=== PATIENT | female | born 1955 | race Caucasian/White ===

== ENCOUNTER 2018-05-30 12:34 | Day surgery (SDC) | payer OTHER ==
[~2018-05-30] VITALS: Ht 170.2 cm; Wt 93.5 kg
[~2018-05-30 12:34] MED LIST: AMLO10 PO; AMLO5 PO; ATOR10 PO; AZELASTINE137 MCG/0.; Allegra-D 12 H1 EACH PO; Anastrozole1 GM PO; CETI10 PO; CLEM1.34; DIPATR PO; EPIN.3I; EPIN.3I IM; EPIPEN 2-P0.3 MG/0.3 IJ; FAMO20 PO; FEXO60; FEXPSEER; IBUP800 PO; K-Dur10 MEQ PO; LETR2.5 PO; LORA1 PO; MELATONIN10 MG PO; NITR100CA PO; ONDA4 PO; ONDA8 PO; POTCHL20ER PO; PRED20 PO; PROM25 PO; PROM25S PR; Pepcid40 MG PO; RXHYDMOR2 PO; RXONDA4ODT MM; SERT100 PO; SERT50 PO; VITAMIN C500 MG PO; VITAMIN D34000 UNIT PO; Zofran8 MG PO
== END 2018-05-30 14:20 | disposition home or self-care (01) ==
LOC: ORSCSDS 12:34
PROVIDERS: Surgery
PROC: 0DBH8ZX Excision of Cecum, Via Natural or Artificial Opening Endoscopic, Diagnostic (ICD-10-PCS; principal; 2018-05-30 13:45)
DX: Z12.11 Encounter for screening for malignant neoplasm of colon (principal); D12.0 Benign neoplasm of cecum; Z86.010 Personal history of colon polyps; Z80.0 Family history of malignant neoplasm of digestive organs; I10 Essential (primary) hypertension; E78.5 Hyperlipidemia, unspecified; F32.9 Major depressive disorder, single episode, unspecified; Z79.899 Other long term (current) drug therapy
CPT/HCPCS: 88305; J7120

== ENCOUNTER → 2018-12-22 | Outpatient (CLI) | payer OTHER | END | disposition home or self-care (01) | LOC: LAB SHORT 13:09 → LAB EV 13:09 | DX: N12 Tubulo-interstitial nephritis, not specified as acute or chronic (principal) | CPT/HCPCS: 87086 ==

== ENCOUNTER 2020-09-06 11:03 | Emergency (ER) | payer OTHER ==
[~2020-09-06] VITALS: Ht 170.2 cm; Wt 93.9 kg
[2020-09-06] MEDS ORDERED: Cymbalta20 MG PO (11:19)
[2020-09-06] MEDS ORDERED: META800 PO (12:27)
== END 2020-09-06 12:45 | disposition home or self-care (01) ==
LOC: ER 11:03
DX: S29.011A Strain of muscle and tendon of front wall of thorax, initial encounter (principal); I10 Essential (primary) hypertension; Z79.899 Other long term (current) drug therapy; Z88.0 Allergy status to penicillin; Z88.1 Allergy status to other antibiotic agents; Z91.030 Bee allergy status; Z88.8 Allergy status to other drugs, medicaments and biological substances; X50.0XXA Overexertion from strenuous movement or load, initial encounter
CPT/HCPCS: 36415; 96374; 99283-25; J1885

== ENCOUNTER → 2021-12-08 | Outpatient (CLI) | payer OTHER ==
[~2021-12-08] MED LIST changes: +C COMPLEX1000 M1 PO; +Cymbalta20 MG PO; +LORA.5 PO; +META800 PO; +VITAMIN D325 MC3 PO; +ZINC15 PO
[2021-12-08 13:01] LABS: BASOPHILS ABSOLUTE AUTO 0.06 K/mm3 (0.00-0.23); BASOPHILS PERCENT AUTO 1 % (0-2); EOSINOPHILS ABSOLUTE AUTO 0.29 K/mm3 (0.00-0.68); EOSINOPHILS PERCENT AUTO 4 % (0-6); Hematocrit 45.6 % (33.0-51.0); Hemoglobin 15.2 g/dL (11.5-16.0); IMMATURE GRAN ABSOLUTE AUTO 0.04 K/mm3 (0.00-0.10); IMMATURE GRAN PERCENT AUTO 1 % (0-1); LYMPHOCYTES ABSOLUTE AUTO 2.33 K/mm3 (0.84-5.20); LYMPHOCYTES PERCENT AUTO 32 % (21-46); MONOCYTES ABSOLUTE AUTO 0.42 K/mm3 (0.16-1.47); MONOCYTES PERCENT AUTO 6 % (4-13); Mean Corpuscular HGB 28.6 pg (26.0-34.0); Mean Corpuscular HGB Conc 33.3 g/dL (31.5-36.5); Mean Corpuscular Volume 86 fL (80-100); Mean Platelet Volume 9.6 fL (9.1-12.4); NEUTROPHILS ABSOLUTE AUTO 4.12 K/mm3 (1.96-9.15); NEUTROPHILS PERCENT AUTO 57 % (41-73); Platelet Count 210 K/mm3 (150-400); RDW Coefficient Variation 14.4 % (11.7-14.2); RDW Standard Deviation 44.3 fL (35.1-46.3); Red Blood Cell Count 5.31 M/mm3 (3.80-5.20); White Blood Cell Count 7.26 K/mm3 (4.00-11.30)
[2021-12-08 13:25] LABS: Albumin, Blood 4.2 g/dL (3.4-5.0); Albumin/Globulin Ratio 1.1 (0.8-1.8); Bilirubin, Total 0.5 mg/dL (0.1-1.0); Bun/Creatinine Ratio 9.1 (12.0-20.0); Calcium, Blood 9.2 mg/dL (8.5-10.1); Creatinine, Blood 0.99 mg/dL (0.40-1.00); Globulin, Blood 3.9 g/dL (2.2-4.0); Magnesium, Blood 2.3 mg/dL (1.6-2.4); Phosphorus, Blood 2.6 mg/dL (2.5-4.9); Potassium, Blood 4.3 mmol/L (3.5-5.5); Thyroid Stimulating Hormone 1.592 uIU/mL (0.360-4.800); Total Protein, Blood 8.1 g/dL (6.4-8.2)
== END | disposition home or self-care (01) ==
LOC: LAB 12:56 → LAB SHORT 12:56
PROVIDERS: Family Medicine
DX: T50.905A Adverse effect of unspecified drugs, medicaments and biological substances, initial encounter (principal)
CPT/HCPCS: 80053; 82330; 83735; 83970; 84100; 84443; 85025

== ENCOUNTER → 2022-01-18 | Outpatient (CLI) | payer OTHER ==
[2022-01-18 15:18] LABS: Creatinine Urine 96.2 mg/dL (27.00-270.00)
[2022-01-18 15:19] LABS: Calcium, Urine 25.3 mg/dL (< 17.5); Calcium, Urine Calculation 354.2 mg/24hrs (42.0-353.0)
== END ==
LOC: LAB SHORT 12:02 → LAB 12:02
PROVIDERS: Internal Medicine Endocrinology, Diabetes & Metabolism
DX: E21.0 Primary hyperparathyroidism (principal)
CPT/HCPCS: 81050; 82340; 82570

== ENCOUNTER → 2022-02-25 | Outpatient (CLI) | payer OTHER | END | disposition home or self-care (01) | LOC: LAB SHORT 10:23 → LAB 10:23 | DX: L01.00 Impetigo, unspecified (principal) | CPT/HCPCS: 87070; 87077; 87147; 87186; 87205 ==

== ENCOUNTER → 2022-04-26 | Outpatient (CLI) | payer OTHER | END | disposition home or self-care (01) | LOC: LAB 14:30 → LAB SHORT 14:30 | DX: L08.0 Pyoderma (principal) | CPT/HCPCS: 87070; 87205 ==

== ENCOUNTER → 2022-10-27 | Outpatient (CLI) | payer OTHER | LOC: LAB SHORT 10:31 → LAB 10:31 | DX: R30.0 Dysuria (principal) | CPT/HCPCS: 87086 ==

== ENCOUNTER → 2023-05-08 | Outpatient (CLI) | payer MEDICARE, OTHER | LOC: LAB SHORT 11:55 → LAB 11:55 | DX: N39.0 Urinary tract infection, site not specified (principal) | CPT/HCPCS: 87077; 87086; 87186 ==

== ENCOUNTER 2023-06-11 08:16 | Emergency (ER) | payer MEDICARE, OTHER ==
[~2023-06-11] VITALS: Ht 170.2 cm; Wt 86.2 kg
[2023-06-11] MEDS ORDERED: ONDA4 PO (09:33)
[2023-06-11] MEDS ORDERED: DULO30 PO (09:33)
[2023-06-11] MEDS ORDERED: OMEP20ER PO (09:34)
[2023-06-11 10:06] LABS: BASOPHILS ABSOLUTE AUTO 0.02 K/mm3 (0.00-0.23); BASOPHILS PERCENT AUTO 0 % (0-2); EOSINOPHILS ABSOLUTE AUTO 0.02 K/mm3 (0.00-0.68); EOSINOPHILS PERCENT AUTO 0 % (0-6); Hematocrit 41.9 % (33.0-51.0); IMMATURE GRAN ABSOLUTE AUTO 0.02 K/mm3 (0.00-0.10); IMMATURE GRAN PERCENT AUTO 0 % (0-1); LYMPHOCYTES ABSOLUTE AUTO 0.99 K/mm3 (0.84-5.20); LYMPHOCYTES PERCENT AUTO 11 % (21-46); MONOCYTES ABSOLUTE AUTO 0.66 K/mm3 (0.16-1.47); MONOCYTES PERCENT AUTO 8 % (4-13); Mean Corpuscular HGB Conc 33.4 g/dL (31.5-36.5); Mean Corpuscular Volume 84 fL (80-100); Mean Platelet Volume 10.5 fL (9.1-12.4); NEUTROPHILS PERCENT AUTO 81 % (41-73); Platelet Count 150 K/mm3 (150-400); RDW Coefficient Variation 14.1 % (11.7-14.2); RDW Standard Deviation 42.7 fL (35.1-46.3); White Blood Cell Count 8.81 K/mm3 (4.00-11.30)
[2023-06-11 10:23] LABS: Bun/Creatinine Ratio 12.7 (12.0-20.0); Calcium, Blood 9.4 mg/dL (8.5-10.1); Creatinine, Blood 0.86 mg/dL (0.40-1.00); Potassium, Blood 3.7 mmol/L (3.5-5.5)
[2023-06-11 10:43] LABS: Influenza A, PCR NEGATIVE (NEGATIVE); Influenza B, PCR NEGATIVE (NEGATIVE); Resp Syncytial Virus, PCR NEGATIVE (NEGATIVE); SARS-Cov-2 (COVID-19) PCR, MMC NEGATIVE (NEGATIVE)
[2023-06-11 12:00] VITALS: BP 113/55
[2023-06-11 12:17] LABS: Adenovirus F 40/41 Not Detected (NOT DETECT); Astrovirus Not Detected (NOT DETECT); Campylobacter Sp Not Detected (NOT DETECT); Cryptosporidium Not Detected (NOT DETECT); Cyclospora Cayetanensis Not Detected (NOT DETECT); E. Coli O157 Not Detected (NOT DETECT); Entamoeba Histolytica Not Detected (NOT DETECT); Enteroaggregative E. coli-EAEC Not Detected (NOT DETECT); Enteropathogenic E. coli-EPEC Detected (NOT DETECT); Enterotoxigenic E. coli-ETEC Not Detected (NOT DETECT); Giardia Lamblia Not Detected (NOT DETECT); Norovirus GI/GII Not Detected (NOT DETECT); Plesiomonas Shigelloides Not Detected (NOT DETECT); Rotavirus A Not Detected (NOT DETECT); Salmonella Sp Not Detected (NOT DETECT); Sapovirus Not Detected (NOT DETECT); Shiga Toxin-prod E. coli-STEC Not Detected (NOT DETECT); Shigella/Enteroin E. coli-EIEC Not Detected (NOT DETECT); Vibrio Cholerae Not Detected (NOT DETECT); Vibrio Sp Not Detected (NOT DETECT); Yersinia Enterocolitica Not Detected (NOT DETECT)
== END 2023-06-11 12:30 | disposition home or self-care (01) ==
LOC: ER 08:16
PROVIDERS: Student in an Organized Health Care Education/Training Program
DX: K52.9 Noninfective gastroenteritis and colitis, unspecified (principal); E86.0 Dehydration; B34.9 Viral infection, unspecified; Z20.822 Contact with and (suspected) exposure to COVID-19; Z88.0 Allergy status to penicillin; Z88.1 Allergy status to other antibiotic agents; Z88.8 Allergy status to other drugs, medicaments and biological substances; Z79.899 Other long term (current) drug therapy; I10 Essential (primary) hypertension
CPT/HCPCS: 0241U; 80048; 83735; 85025; 87507; 96374; 96375; 96376; 99284-25; A9270; J0780; J1200; J1885; J7030

== ENCOUNTER 2024-12-27 11:05 | Day surgery (SDC) | payer MEDICARE, OTHER ==
[2024-12-27] VITALS (12 sets, daily range): BP systolic 112–148; BP diastolic 65–87
[~2024-12-27] VITALS: Ht 170.2 cm; Wt 88.2 kg
[~2024-12-27 11:05] MED LIST changes: +ALLEGRA ALLERG180 MG PO; +ASCO500 PO; +AZELASTINE137 MCG/01; +Acetaminophen 500 MG Tab PO SCH; +BUDE.25; +CLIN1TS; +CeFAZolin Sodium 2,000 MG in NS 100 ML IV SCH; +Chlorhexidine Mouth Care 15 ML UDC MT SCH; +DICLOFENAC SOD100 GM TP; +DOXY100 PO; +DULO60 PO; -EPIN.3I; +EPIPEN0.3 MG/0.3 IM; +Lactated Ringer's 1,000 ML IV SCH; +METR59TL TOP; +OMEP20ER PO; +OxyCODONE HCL 10 MG TABCR PO SCH; +Ropivacaine 0.5% HCl/Pf 123.125 MG,EPINEPHrine HCL 0.25 MG,Ketorolac Tromethamine 15 MG... INFIL SCH; +Tranexamic Acid 100 ML IV SCH; +VITAMIN D32000 UNIT PO
[2024-12-27] MEDS ORDERED: Midazolam HCl 1MG / ML 2ML Vial IV PRN (11:30)
[2024-12-27] MEDS ORDERED: Lidocaine HCl 1% 5 ML SYR INJ ONE (11:35)
[2024-12-27] MEDS ORDERED: Lactated Ringer's 1,000 ML IV SCH ×2 (11:35→12:30)
[2024-12-27] MEDS ORDERED: LORazepam 0.5 MG Tab PO PRN (12:05)
[2024-12-27] MEDS ORDERED: Budesonide 0.25 MG / 2 ML RESP INH PRN (12:05)
[2024-12-27] MEDS ORDERED: Azelastine 0.1% Nasal Spray PRN (12:10)
[2024-12-27] MEDS ORDERED: Ondansetron 4 MG TAB PO PRN (12:10)
[2024-12-27] MEDS ORDERED: Bisacodyl 10 MG Supp PR PRN (12:15)
[2024-12-27] MEDS ORDERED: Clindamycin 600mg in D5W 50 ML IV SCH ×2 (12:15→21:00)
[2024-12-27] MEDS ORDERED: OxyCODONE HCL 5 MG TAB PO PRN ×2 (12:15)
[2024-12-27] MEDS ORDERED: DiphenhydrAMINE HCL 25 MG Cap PO PRN (12:20)
[2024-12-27] MEDS ORDERED: HYDROmorphone HCl/Pf 1MG SYR IV PRN ×2 (12:20→14:40)
[2024-12-27] MEDS ORDERED: Promethazine HCl 25 MG Tab PO PRN (12:20)
[2024-12-27] MEDS ORDERED: Magnesium Hydroxide Conc 10 ML UDC PO PRN (12:25)
[2024-12-27] MEDS ORDERED: Metoclopramide HCl 5MG / ML 2ML Vial IV PRN ×2 (12:25→14:45)
[2024-12-27] MEDS ORDERED: Ondansetron HCl 2 MG / ML 2ML Vial IV PRN ×2 (12:25→14:40)
[2024-12-27] MEDS ORDERED: propofoL 20 ML IV ONE (12:26)
[2024-12-27] MEDS ORDERED: propofoL 100 ML IV ONE (12:28)
--- NOTE | 2024-12-27 12:35 | NUR ---
History, Chart, Medications and Allergies reviewed before start of procedure. Lungs clear T/O to Auscultation. Patient confirms NPO status and agrees with scheduled surgery. Pre-Op teaching done. Pt verbalizes understanding. Patient reports completing Chlorhexadine shower X2 prior to admission to hospital.
[2024-12-27] MEDS ORDERED: Dexamethasone Sod Phos 10 MG/ML 1ML VIAL ONE (12:45)
[2024-12-27] MEDS ORDERED: Ketorolac Tromethamine 30mg Vial ONE (12:45)
[2024-12-27] MEDS ORDERED: Ondansetron HCl 2 MG / ML 2ML Vial ONE (12:45)
[2024-12-27] MEDS ORDERED: propofoL 0 ML IV ONE (12:58)
[2024-12-27] MEDS ORDERED: Prochlorperazine Edisylate 10 mg Vial IV PRN (14:40)
[2024-12-27] MEDS ORDERED: Albuterol 2.5 MG/3 ML VIAL INH PRN (14:45)
[2024-12-27] MEDS ORDERED: FentaNYL Citrate 50 MCG/ML 2 ML Injection IV PRN ×2 (14:45)
--- NOTE | 2024-12-27 15:19 | NUR ---
PT ARRIVED TO UNIT AT APROX 1500 FROM PACU. PT SLEEPING BUT AWAKENS TO VERBAL STIMULI, FALLS BACK ASLEEP EASILY. PT DENIES PAIN UPON ARRIVAL. RODOLFO WRAP TO LLE C/D/I. PT REPORS SENSATION @L4. VSS UPON ARRIVAL TO UNIT.
[2024-12-27] MEDS ORDERED: Acetaminophen 500 MG Tab PO SCH (16:00)
--- NOTE | 2024-12-27 17:29 | NUR ---
SUMMARY PATIENT IS STILL DROWSY, VSS. N/T TO BILAT FEET. ABLE TO WIGGLE TOES , UNABLE TO LIFT LEGS. DENIES PAIN AT THIS TIME. CALL LIGHT IN REACH.
[2024-12-27] MEDS ORDERED: Ketorolac Tromethamine 15mg Vial IV SCH (18:00)
[2024-12-27] MEDS ORDERED: Docusate Sodium 100 MG Cap PO SCH (21:00)
--- NOTE | 2024-12-27 22:31 | NUR ---
ASSUMED CARE ASSUMED CARE OF PATIENT AT 1999 TODAY. POD 0 S/P LEFT TOTAL KNEE. DRESSING CDI. CRYO, RODOLFO WRAP, SCDS, AND COMPRESSION SOCKS IN PLACE. PT DENIES NEEDS. AYSHA PO INTAKE, DENIES N/V. AWAITING POST OP VOID AND AMBULATION R/T N/T TO BLE FROM SPINAL. PT ABLE TO WIGGLE TOES. IV PATENT WITH TKO INFUSING. ENCOURAGED PO INTAKE AND AMBULATION WHEN ABLE. DISCUSSED PAIN MANAGEMENT. PT VERBALIZED UNDERSTANDING AND AGREEMENT. PT HAS CALL LIGHT IN REACH AND ABLE TO MAKE NEEDS KNOWN. PLAN TO WORK WITH THERAPY IN AM AND DC HOME.
[2024-12-28 00:37] VITALS: BP 110/62
[2024-12-28 04:49] VITALS: BP 115/71
[2024-12-28 05:22] LABS: BASOPHILS ABSOLUTE AUTO 0.02 K/mm3 (0.00-0.23); BASOPHILS PERCENT AUTO 0 % (0-2); EOSINOPHILS PERCENT AUTO 0 % (0-6); Hematocrit 34.1 % (33.0-51.0); Hemoglobin 11.5 g/dL (11.5-16.0); IMMATURE GRAN ABSOLUTE AUTO 0.07 K/mm3 (0.00-0.10); IMMATURE GRAN PERCENT AUTO 1 % (0-1); LYMPHOCYTES ABSOLUTE AUTO 1.13 K/mm3 (0.84-5.20); LYMPHOCYTES PERCENT AUTO 9 % (21-46); MONOCYTES ABSOLUTE AUTO 0.45 K/mm3 (0.16-1.47); MONOCYTES PERCENT AUTO 3 % (4-13); Mean Corpuscular HGB 28.8 pg (26.0-34.0); Mean Corpuscular HGB Conc 33.7 g/dL (31.5-36.5); Mean Corpuscular Volume 85 fL (80-100); Mean Platelet Volume 10.5 fL (9.1-12.4); NEUTROPHILS ABSOLUTE AUTO 11.55 K/mm3 (1.96-9.15); NEUTROPHILS PERCENT AUTO 87 % (41-73); Platelet Count 183 K/mm3 (150-400); RDW Coefficient Variation 13.9 % (11.7-14.2); RDW Standard Deviation 42.9 fL (35.1-46.3); White Blood Cell Count 13.22 K/mm3 (4.00-11.30)
--- NOTE | 2024-12-28 05:50 | NUR ---
SHIFT SUMMARY ERASTO WAS ALERT AND FULLY ORIENTED ON ASSESMENT. PT SPINAL WORE OFF AFTER A FEW HOURS AND PT IS ABLE TO AMBULATE AND VOID APPROPRIATELY. PT DENIES PAIN, BUT I HAVE HAD TO MEDICATE HER FOR NAUSEA. DRESSING C/D/I, CIRCULATION AND SENSATION INTACT TO FEET. NO ACUTE EVENTS NO NOTED CHANGES TO PT CONDITION.
[2024-12-28 05:54] LABS: Bun/Creatinine Ratio 16.1 (12.0-20.0); Calcium, Blood 8.8 mg/dL (8.5-10.1); Creatinine, Blood 0.81 mg/dL (0.40-1.00); Potassium, Blood 4.2 mmol/L (3.5-5.5)
[2024-12-28] MEDS ORDERED: Famotidine 20 MG Tab PO SCH (06:00)
[2024-12-28 07:38] VITALS: BP 101/65
--- NOTE | 2024-12-28 08:52 | NUR ---
POST-OP DAY1 PATIENT WORKED WITH THERAPY, RODOLFO WRAP AND AQUACEL TO LEFT KNEE, IS C/D/I. REPORTS SLIGHT N/T IN LEFT FOOT. ABLE TO MAKE NEEDS KNOWN. DENIES N/V, PAIN AT THIS TIME. ICE AND SCDS ON IN THE CHAIR TOLERATING BREAKFAST. DC INSTRUCTIONS TO FOLLOW.
[2024-12-28] MEDS ORDERED: Aspirin 81 MG Chew PO SCH (09:00)
[2024-12-28] MEDS ORDERED: Cholecalciferol 1000 Unit Tablet (=25MCG) PO SCH (09:00)
[2024-12-28] MEDS ORDERED: DULoxetine HCL 30 MG Cap DR PO SCH (09:00)
[2024-12-28] MEDS ORDERED: Atorvastatin 10 MG Tab PO SCH (09:00)
[2024-12-28] MEDS ORDERED: Ascorbic Acid 500 MG Tab PO SCH (09:00)
== END 2024-12-28 09:55 | disposition home or self-care (01) ==
LOC: ORSCMMR 11:05 → ORD 12:10 → ORSCMMR 12:30 → ORD 12:30 → ORSCMMR 13:29 → SURS 15:01 → ORSCMMR 12-28 09:55
PROVIDERS: Orthopaedic Surgery
PROC: 0SRD0JA Replacement of Left Knee Joint with Synthetic Substitute, Uncemented, Open Approach (ICD-10-PCS; principal; 2024-12-27 12:30)
DX: M17.12 Unilateral primary osteoarthritis, left knee (principal); I10 Essential (primary) hypertension; G47.33 Obstructive sleep apnea (adult) (pediatric); K76.0 Fatty (change of) liver, not elsewhere classified; Z79.899 Other long term (current) drug therapy; E66.9 Obesity, unspecified; Z68.30 Body mass index [BMI] 30.0-30.9, adult
CPT/HCPCS: 36415; 73560-LT; 80048; 85025; 94760; 97110; 97116; 97162; 97530; A9270; C1713; C1776; J0171; J0735; J1100; J1885; J2405; J2704; J2765; J2795; J7120

== ENCOUNTER → 2025-03-24 | Outpatient (CLI) | payer MEDICARE, OTHER ==
[~2025-03-24] MED LIST changes: -Acetaminophen 500 MG Tab PO SCH; -CeFAZolin Sodium 2,000 MG in NS 100 ML IV SCH; -Chlorhexidine Mouth Care 15 ML UDC MT SCH; -Lactated Ringer's 1,000 ML IV SCH; -OxyCODONE HCL 10 MG TABCR PO SCH; -Ropivacaine 0.5% HCl/Pf 123.125 MG,EPINEPHrine HCL 0.25 MG,Ketorolac Tromethamine 15 MG... INFIL SCH; -Tranexamic Acid 100 ML IV SCH
== END ==
LOC: LAB 15:58 → LAB SHORT 15:58
DX: N12 Tubulo-interstitial nephritis, not specified as acute or chronic (principal)
CPT/HCPCS: 87086

== ENCOUNTER → 2025-05-01 | Outpatient (CLI) | payer MEDICARE, OTHER | END | disposition home or self-care (01) | LOC: LAB SHORT 16:36 → LAB 16:36 | DX: R31.0 Gross hematuria (principal) | CPT/HCPCS: 88108 ==

== ENCOUNTER → 2025-07-11 | Outpatient (CLI) | payer MEDICARE, OTHER ==
[~2025-07-11] MED LIST changes: +ATIVAN0.5 MG PO
== END ==
LOC: LAB 13:42 → LAB SHORT 13:42
DX: N39.0 Urinary tract infection, site not specified (principal)
CPT/HCPCS: 87086; 87106

== ENCOUNTER 2025-07-27 08:02 | Emergency (ER) | payer MEDICARE, OTHER ==
[~2025-07-27] VITALS: Ht 170.2 cm; Wt 88.5 kg
[2025-07-27] MEDS ORDERED: Ketorolac Tromethamine 30mg Vial IM ONE (08:35)
[2025-07-27 08:37] LABS: Source, Urine Clean Catch
[2025-07-27 08:40] LABS: Bilirubin, Urine Neg (Neg); Color, Urine Yellow (P-Yellow); Glucose Qualitative, Urine Neg (Neg); Ketones, Urine Neg (Neg); Leukocyte Esterase, Urine 3+ (Neg); Protein, Urine 3+ (Neg); Specific Gravity, Urine 1.020 (1.003-1.022); Urobilinogen, Urine NORM (Normal)
[2025-07-27 08:47] LABS: Red Blood Cells, Urine TNTC /hpf (0-2); White Blood Cells, Urine TNTC /hpf (0-5)
[2025-07-27 09:48] LABS: BASOPHILS ABSOLUTE AUTO 0.05 K/mm3 (0.00-0.23); BASOPHILS PERCENT AUTO 1 % (0-2); EOSINOPHILS ABSOLUTE AUTO 0.13 K/mm3 (0.00-0.68); EOSINOPHILS PERCENT AUTO 1 % (0-6); Hematocrit 42.8 % (33.0-51.0); Hemoglobin 13.9 g/dL (11.5-16.0); IMMATURE GRAN ABSOLUTE AUTO 0.02 K/mm3 (0.00-0.10); IMMATURE GRAN PERCENT AUTO 0 % (0-1); LYMPHOCYTES ABSOLUTE AUTO 1.90 K/mm3 (0.84-5.20); LYMPHOCYTES PERCENT AUTO 20 % (21-46); MONOCYTES ABSOLUTE AUTO 0.50 K/mm3 (0.16-1.47); MONOCYTES PERCENT AUTO 5 % (4-13); Mean Corpuscular HGB Conc 32.5 g/dL (31.5-36.5); Mean Corpuscular Volume 84 fL (80-100); NEUTROPHILS ABSOLUTE AUTO 7.16 K/mm3 (1.96-9.15); NEUTROPHILS PERCENT AUTO 73 % (41-73); NRBC ABSOLUTE 0.00 K/mm3 (0.00-0.02); NRBC Auto 0.0 /100 WBC (0.0-0.2); Platelet Count 171 K/mm3 (150-400); RDW Coefficient Variation 14.3 % (11.7-14.2); RDW Standard Deviation 43.7 fL (35.1-46.3)
[2025-07-27 10:08] LABS: Alanine Aminotransfer (ALT/SGP 25.0 U/L (12-78); Albumin, Blood 4.1 g/dL (3.4-5.0); Albumin/Globulin Ratio 1.1 (0.8-1.8); Anion Gap 9.0 mmol/L (3-11); Aspartate Aminotrans (AST/SGOT 17.0 U/L (12-37); Bilirubin, Total 0.6 mg/dL (0.1-1.0); Blood Urea Nitrogen 15.0 mg/dL (8-24); CO2, Blood 27.0 mmol/L (21-32); Calcium, Blood 9.3 mg/dL (8.5-10.1); Chloride, Blood 106.0 mmol/L (98-108); Creatinine, Blood 0.88 mg/dL (0.40-1.00); Globulin, Blood 3.8 g/dL (2.2-4.0); Glucose, Blood 112.0 mg/dL (70-99); Magnesium, Blood 2.2 mg/dL (1.6-2.4); Potassium, Blood 4.0 mmol/L (3.5-5.5); Sodium, Blood 138.0 mmol/L (136-145); Total Protein, Blood 7.9 g/dL (6.4-8.2)
[2025-07-27] MEDS ORDERED: CEFD300 PO (11:30)
[2025-07-27] MEDS ORDERED: PHENA200 PO (11:30)
[2025-07-27 11:57] VITALS: BP 124/93
== END 2025-07-27 11:57 | disposition home or self-care (01) ==
LOC: ER 08:02
PROVIDERS: Student in an Organized Health Care Education/Training Program
DX: N30.91 Cystitis, unspecified with hematuria (principal); I10 Essential (primary) hypertension; Z79.899 Other long term (current) drug therapy; Z88.0 Allergy status to penicillin; Z91.030 Bee allergy status; Z88.8 Allergy status to other drugs, medicaments and biological substances
CPT/HCPCS: 74177; 80053; 81001; 83690; 83735; 85025; 87077; 87086; 87186; 96374-59; 99284-25; A9270; J1885; Q9967